=== PATIENT | male | born 1990 | race Caucasian/White ===

== ENCOUNTER 2023-04-05 10:23 | Emergency (ER) | payer OTHER ==
[~2023-04-05] VITALS: Ht 167.6 cm; Wt 57.6 kg
[2023-04-05 11:03] VITALS: BP 117/76; PULSE 67; RESP 18; TEMP 98; O2SAT 98
[2023-04-05 12:55] VITALS: O2SAT 98
[2023-04-05] MEDS ORDERED: NAPR-1704 PO (14:37)
== END 2023-04-05 14:46 | disposition home or self-care (01) ==
LOC: MED 10:23
DX: M25.742 Osteophyte, left hand (principal)
CPT/HCPCS: 73130; 99283